=== PATIENT | female | born 2000 | race Hispanic/Latino ===

== ENCOUNTER 2022-09-25 00:58 | Emergency (ER) | payer SELFPAY ==
[2022-09-25] MEDS ORDERED: NA CHLORIDE 0.9% 1,000 ML ONE (01:16)
[2022-09-25 02:22] LABS: Urine Blood 3+ (Negative); Urine Glucose Negative (Negative); Urine Protein Negative (Negative)
[2022-09-25 02:36] LABS: Absolute Lymphocytes (CBC) 2.8 K/uL (0.7-4.9); Hematocrit 39.4 % (36.0-45.0); MCV 90.9 fL (80-100); MPV 8.2 fL (7.6-11.3); RBC Red Blood Cell Count 4.33 M/uL (3.86-4.86)
--- NOTE | 2022-09-25 02:52 | ER ---
Nurse's Notes [facility] Name: Nicole Araya Age: 21 yrs Sex: Female : 2000 Arrival Date: 09/25/2022 Time: 01:00 Bed 15 Private MD: Diagnosis: Threatened Presentation: 09/25 01:09 Chief complaint: Patient states: Boyfriend states " She works at the [employer]. she tw5 came back home and got into the shower when she started yelling out for me. She was bleeding a lot with a lot of blood clots. She is suppose to have her first appointment on Wednesday.". Coronavirus screen: Vaccine status: Patient reports receiving the 2nd dose of the covid vaccine. Moderna. Ebola Screen: Patient negative for fever greater than or equal to 101.5 degrees Fahrenheit, and additional compatible Ebola Virus Disease symptoms Patient denies exposure to infectious person. Patient denies travel to an Ebola-affected area in the 21 days before illness onset. Initial Sepsis Screen: Does the patient meet any 2 criteria? No. Patient's initial sepsis screen is negative. Does the patient have a suspected source of infection? No. Patient's initial sepsis screen is negative. Risk Assessment: Do you want to hurt yourself or someone else? Patient reports no desire to harm self or others. Onset of symptoms was September 25, 2022 at 00:45. 01:09 Method Of Arrival: Wheelchair tw5 01:09 Acuity: DENAE 3 tw5 Triage Assessment: 01:12 General: Appears in no apparent distress. Behavior is crying. Pain: Denies pain. : tw5 Reports vaginal bleeding that is with clots, heavy flow. 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 - Social history:: Smoking status: Patient denies any tobacco usage or history of. - Family history:: not pertinent. Screenin:38 Abuse screen: Denies threats or abuse. Denies injuries from another. Nutritional aa9 screening: No deficits noted. Tuberculosis screening: No symptoms or risk factors identified. Fall Risk None identified. Assessment: 02:00 General: Appears in no apparent distress. comfortable, Behavior is calm, cooperative, aa9 appropriate for age. Pain: Denies pain. Neuro: Level of Consciousness is awake, alert, obeys commands, Oriented to person, place, time, situation. Cardiovascular: Patient's skin is warm and dry. Respiratory: Airway is patent Trachea midline Respiratory effort is even, unlabored. : Urine is blood tinged. Derm: Skin is intact, is healthy with good turgor. Musculoskeletal: No signs and/or symptoms reported regarding the musculoskeletal system. Vital Signs: 01:09 BP 108 / 72; Pulse 81; Resp 20; Temp 98.5; Pulse Ox 100% ; Weight 81.65 kg; Height 5 tw5 ft. 8 in. (172.72 cm); Pain 0/10; 02:15 BP 104 / 69; Pulse 83; Resp 17 S; Pulse Ox 98% on R/A; aa9 01:09 Body Mass Index 27.37 (81.65 kg, 172.72 cm) tw5 ED Course: 01:00 Patient arrived in ED. ja2 01:02 Blayne Palafox MD is Attending Physician. alonzo 01:12 Triage completed. tw5 01:12 Arm band placed on. tw5 01:14 Lucero Watson, RN is Primary Nurse. aa9 02:01 Transvaginal Ob In Process Unspecified. EDMS 02:04 Inserted saline lock: 20 gauge in right antecubital area, using aseptic technique. aa9 Blood collected. 02:07 Basic Metabolic Panel Sent. aa9 02:07 CBC with Diff Sent. aa9 02:39 Abo/rh Typing Sent. aa9 02:39 Basic Metabolic Panel Sent. aa9 02:39 CBC with Diff Sent. aa9 02:39 Quantitative Hcg Sent. aa9 02:51 Galo Bentley MD is Referral Physician. alonzo 03:30 No provider procedures requiring assistance completed. IV discontinued, intact, aa9 bleeding controlled, No redness/swelling at site. Pressure dressing applied. 03:31 Patient has correct armband on for positive identification. Call light in reach. Side aa9 rails up X2. Administered Medications: 02:08 Drug: NS 0.9% 1000 ml Route: IV; Rate: 1 bolus; Site: right antecubital; aa9 03:30 Follow up: Response: No adverse reaction; IV Status: Completed infusion; IV Intake: aa9 1000ml Medication: 03:30 VIS not applicable for this client. aa9 Intake: 03:30 IV: 1000ml; Total: 1000ml. aa9 Outcome: 02:51 Discharge ordered by . alonzo 03:30 Discharged to home via wheelchair, with family. aa9 03:30 Condition: stable 03:30 Discharge instructions given to patient, family, Instructed on discharge instructions, follow up and referral plans. Demonstrated understanding of instructions, follow-up care. 03:31 Patient left the ED. aa9 Signatures: Dispatcher [employer] EDBlayne Adler MD MD cha Alexander, Jessica ja2 Wood, Tiffany tw5 Lucero Watson, RN RN aa9
--- NOTE | 2022-09-25 02:52 | EDPHYS ---
Physician Documentation [facility] Name: Nicole Araya Age: 21 yrs Sex: Female : 2000 Arrival Date: 09/25/2022 Time: 01:00 Bed 15 Private MD: ARNULFO Physician Blayne Palafox HPI: 09/25 02:28 This 21 yrs old Female presents to ER via Wheelchair with complaints of alonzo Vaginal Bleeding. 02:28 The patient presents with vaginal bleeding that is moderate. Onset: The alonzo symptoms/episode began/occurred just prior to arrival, this morning. Modifying factors: The symptoms are alleviated by nothing, the symptoms are aggravated by nothing. Associated signs and symptoms: The patient has no apparent associated signs or symptoms. Severity of symptoms: At their worst the symptoms were mild, moderate, in the emergency department the symptoms are unchanged. The patient is sexually active, reportedly has a single partner. The patient has not experienced similar symptoms in the past. 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 - Social history:: Smoking status: Patient denies any tobacco usage or history of. - Family history:: not pertinent. ROS: 02:28 Constitutional: Negative for fever, chills, and weight loss, Eyes: Negative for injury, alonzo pain, redness, and discharge, ENT: Negative for injury, pain, and discharge, Neck: Negative for injury, pain, and swelling, Cardiovascular: Negative for chest pain, palpitations, and edema, Respiratory: Negative for shortness of breath, cough, wheezing, and pleuritic chest pain, Abdomen/GI: Negative for abdominal pain, nausea, vomiting, diarrhea, and constipation, Back: Negative for injury and pain, MS/Extremity: Negative for injury and deformity, Skin: Negative for injury, rash, and discoloration, Neuro: Negative for headache, weakness, numbness, tingling, and seizure, Psych: Negative for depression, anxiety, suicide ideation, homicidal ideation, and hallucinations, Allergy/Immunology: Negative for hives, rash, and allergies, Endocrine: Negative for neck swelling, polydipsia, polyuria, polyphagia, and marked weight changes, Hematologic/Lymphatic: Negative for swollen nodes, abnormal bleeding, and unusual bruising. 02:28 : Positive for vaginal bleeding. Exam: 02:28 Constitutional: This is a well developed, well nourished patient who is awake, alert, alonzo and in no acute distress. Head/Face: Normocephalic, atraumatic. Eyes: Pupils equal round and reactive to light, extra-ocular motions intact. Lids and lashes normal. Conjunctiva and sclera are non-icteric and not injected. Cornea within normal limits. Periorbital areas with no swelling, redness, or edema. ENT: Nares patent. No nasal discharge, no septal abnormalities noted. Tympanic membranes are normal and external auditory canals are clear. Oropharynx with no redness, swelling, or masses, exudates, or evidence of obstruction, uvula midline. Mucous membranes moist. Neck: Trachea midline, no thyromegaly or masses palpated, and no cervical lymphadenopathy. Supple, full range of motion without nuchal rigidity, or vertebral point tenderness. No Meningismus. Chest/axilla: Normal chest wall appearance and motion. Nontender with no deformity. No lesions are appreciated. Cardiovascular: Regular rate and rhythm with a normal S1 and S2. No gallops, murmurs, or rubs. Normal PMI, no JVD. No pulse deficits. Respiratory: Lungs have equal breath sounds bilaterally, clear to auscultation and percussion. No rales, rhonchi or wheezes noted. No increased work of breathing, no retractions or nasal flaring. Abdomen/GI: Soft, non-tender, with normal bowel sounds. No distension or tympany. No guarding or rebound. No evidence of tenderness throughout. Back: No spinal tenderness. No costovertebral tenderness. Full range of motion. Skin: Warm, dry with normal turgor. Normal color with no rashes, no lesions, and no evidence of cellulitis. MS/ Extremity: Pulses equal, no cyanosis. Neurovascular intact. Full, normal range of motion. Neuro: Awake and alert, GCS 15, oriented to person, place, time, and situation. Cranial nerves II-XII grossly intact. Motor strength 5/5 in all extremities. Sensory grossly intact. Cerebellar exam normal. Normal gait. Psych: Awake, alert, with orientation to person, place and time. Behavior, mood, and affect are within normal limits. Vital Signs: 01:09 BP 108 / 72; Pulse 81; Resp 20; Temp 98.5; Pulse Ox 100% ; Weight 81.65 kg; Height 5 tw5 ft. 8 in. (172.72 cm); Pain 0/10; 02:15 BP 104 / 69; Pulse 83; Resp 17 S; Pulse Ox 98% on R/A; aa9 01:09 Body Mass Index 27.37 (81.65 kg, 172.72 cm) tw5 MDM: 01:17 Patient medically screened. [facility] 02:30 Differential diagnosis: ectopic , nonspecific abdominal pain, postcoital alonzo bleeding, uterine fibroids, urinary tract infection. Data reviewed: vital signs, nurses notes, lab test result(s), radiologic studies, ultrasound. Data interpreted: credit historian: not applicable for this patient encounter. rate is 81 beats/min, rhythm is regular, Pulse oximetry: on room air is 100 %. Test interpretation: by ED physician or midlevel provider:. Counseling: I had a detailed discussion with the patient and/or guardian regarding: the historical points, exam findings, and any diagnostic results supporting the discharge/admit diagnosis, lab results, radiology results, the need for outpatient follow up, an OB/Gyne specialist. 09/25 01:03 Order name: Abo/rh Typing; Complete Time: 02:51 [facility] 09/25 01:03 Order name: Basic Metabolic Panel; Complete Time: 03:17 [facility] 09/25 01:03 Order name: CBC with Diff; Complete Time: 02:51 [facility] 09/25 01:03 Order name: Quantitative Hcg; Complete Time: 03:17 [facility] 09/25 02:22 Order name: Urine Dipstick-Ancillary; Complete Time: 02:28 EDMS 09/25 02:28 Order name: Urine --Ancillary (enter results); Complete Time: 02:51 mw2 09/25 01:03 Order name: US Transvaginal Ob [facility] 09/25 01:03 Order name: IV Saline Lock; Complete Time: 02:07 [facility] 09/25 01:03 Order name: Labs collected and sent; Complete Time: 02:07 [facility] 09/25 01:03 Order name: NPO; Complete Time: 02: [facility] 09/25 01:03 Order name: Urine Dipstick-Ancillary (obtain specimen); Complete Time: 02:28 [facility] 09/25 01:03 Order name: Urine Test (obtain specimen); Complete Time: 02: [facility] Administered Medications: 02:08 Drug: NS 0.9% 1000 ml Route: IV; Rate: 1 bolus; Site: right antecubital; aa9 03:30 Follow up: Response: No adverse reaction; IV Status: Completed infusion; IV Intake: aa9 1000ml Disposition Summary: 09/25/22 02:51 Discharge Ordered Location: Home [facility] Problem: new alonzo Symptoms: have improved alonzo Condition: Stable alonzo Diagnosis - Threatened alonzo Followup: alonzo - With: Private Physician - When: 2 - 3 days - Reason: Recheck today's complaints, Continuance of care, Re-evaluation by your physician Followup: alonzo - With: - When: 1 - 2 days - Reason: Recheck today's complaints, Re-evaluation by your physician Discharge Instructions: - Discharge Summary Sheet alonzo - Care alonzo - Threatened Miscarriage alonzo - Vaginal Bleeding During , First Trimester alonzo - Vaginal Bleeding During , Second Trimester alonzo - First Trimester of , [id number] alonzo - First Trimester of alonoz - Threatened Miscarriage, [id number] alonzo - Vaginal Bleeding During , First Trimester, [id number] [facility] Forms: - Medication Reconciliation Form alonzo - Thank You Letter alonzo - Antibiotic Education alonzo - Prescription Opioid Use alonzo - Work release form aa9 - Family Work Release aa9 Signatures: Dispatcher [employer] Blayne Ritchie MD MD cha Wood, Tiffany tw5 Lucero Watson, RN RN aa9
[2022-09-25 03:04] LABS: Potassium 3.6 mmol/L (3.5-5.1)
[2022-09-25 03:49] VITALS: TEMP 98.5
[2022-09-25 03:59] VITALS: BP 104/69; O2SAT 98
--- NOTE | 2022-09-25 12:17 | RAD REPORT ---
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 TECHNIQUE: Utilizing a transvaginal array transducer, real-time ultrasound evaluation of the female pelvis was performed. Color Doppler imaging was used to assess vascular flow. FINDINGS: The uterus suggest to be within normal limits although was not measured. Visualized portio ns of the cervix demonstrate to be within normal limits. A gestational sac demonstrate normal shape a nd configuration with the presence of a pole with a mean crown-rump length measurement of 3.78 cm corresponding to a ultrasonographic gestational age of 10 weeks and 2 days with an estimated date of delivery of April 21, 2023. Cardiac activity was documented at 159 beats per minutes. Yolk sac was v isualized measuring 0.51 cm. There is no evidence for subchronic hemorrhage. Neither ovary was visualized transvaginally. No free fluid was identified in the posterior cul-de-sac, no adnexal masses seen. IMPRESSION: Single living intrauterine corresponding to a ultrasonographic gestational age of 10 weeks and 2 days. Neither ovary was visualized. 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 The interpreting radiologist is fully responsible for the content of the report.
== END 2022-09-25 03:31 | disposition home or self-care (01) ==
LOC: ER 00:58
DX: O20.0 Threatened abortion (principal); Z3A.09 9 weeks gestation of pregnancy
CPT/HCPCS: 36415; 76817; 80048; 81003; 81025; 84702; 85025; 86900; 86901; 96360; 99284; J7030